=== PATIENT | male | born 1950 | race Caucasian/White ===

== ENCOUNTER → 2018-07-27 | Outpatient (CLI) | payer MEDICARE | LOC: GMAM 15:02 | PROVIDERS: ATTEND Family Medicine | DX: Z12.5 Encounter for screening for malignant neoplasm of prostate (principal) ==

== ENCOUNTER → 2018-08-08 | Outpatient (CLI) | payer MEDICARE ==
--- NOTE | 2018-08-08 12:12 | CT ---
CT arthrogram right shoulder INDICATION: Shoulder pain NOS TECHNIQUE: Helical CT images right shoulder post arthrogram with multiplanar reformats FINDINGS: Diffusely macerated long head bicep likely full-thickness tear. Severe partial tear and thinning of the distal subscapularis tendon. Cystic change in the lesser tuberosity. Full-thickness retracted tears of the supraspinatus and infraspinatus with contrast opacification of the subacromial and subdeltoid bursa. Diffuse labral fraying and volume loss especially superiorly. Type III acromial morphology. Muscle atrophy generally grade 2-3 with fatty marbling and volume loss The lower infraspinatus approaches grade 4. 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 Electronically signed by: Dinesh Gonzalez MD 08/08/2018 12:08 PM CDT
--- NOTE | 2018-08-08 21:07 | RAD ---
EXAM DESCRIPTION: Arthrogram Shoulder Right: RF CLINICAL HISTORY: SHOULDER PAIN right. Initial injury 5 years ago picking up heavy object. Gradual loss of function and increased pain. COMPARISON: Post-arthrogram CT scan of the right shoulder same date. TECHNIQUE: The procedure was explained to the patient with risks and benefits. The patient gave verbal and written consent. Contrast mixture of 10 mL non-ionic 300 contrast and 10 mL of sterile normal saline was prepared. Patient supine on the fluoroscopic table with right shoulder in external rotation. The anterior mid superior right glenohumeral joint was localized by fluoroscopy. The skin was marked, then prepped and draped in a sterile fashion. Intradermal, subcutaneous and intramuscular 1% Xylocaine was given for topical anesthesia. A 1.5 inch, 25-gauge needle was introduced into the anterior superior right glenohumeral joint capsule under fluoroscopic visualization. A test injection of 2 cc of non-ionic 300 was performed under fluoroscopy. Additional 10 CC of contrast mixture was then injected under fluoroscopy. The patient tolerated the procedure well. Active exercise. Patient was transferred to the CT suite for spiral-axial and reconstruction imaging. No immediate complications. One frontal image recorded for the patient's permanent medical record. Total fluoroscopic time was 0.4 minutes. DAP: 1.318 Gy-cm2. IMPRESSION: 1. Successful fluoroscopic guided arthrogram of the right shoulder prior to CT scan. The supraspinatus tendon is torn and completely retracted medially. Please refer to post arthrogram CT scan of the right shoulder. No immediate complications. Electronically signed by: Glenn Uribe MD 08/08/2018 9:04 PM CDT
== END ==
LOC: CT 08-05 08:20
PROVIDERS: ATTEND Family Medicine
DX: S46.011A Strain of muscle(s) and tendon(s) of the rotator cuff of right shoulder, initial encounter (principal); S46.101A Unspecified injury of muscle, fascia and tendon of long head of biceps, right arm, initial encounter; M19.011 Primary osteoarthritis, right shoulder

== ENCOUNTER → 2018-08-25 | Outpatient (CLI) | payer MEDICARE ==
--- NOTE | 2018-08-25 16:12 | RAD ---
EXAM DESCRIPTION: Shoulder,Right 2 or More Views CLINICAL HISTORY: M25.511 COMPARISON: None. TECHNIQUE: 4 views right FINDINGS: Degenerative changes are observed in the a.c. Joint. There is uprising the humeral head consistent with a rotator cuff tear. No fracture or dislocation is seen. 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 Exam also reveals uprising of the humeral head consistent with a rotator cuff tear. Electronically signed by: Bayron Rowell MD 08/25/2018 4:10 PM CDT
== END ==
LOC: RAD 08:44
PROVIDERS: ATTEND Orthopaedic Surgery
DX: M19.011 Primary osteoarthritis, right shoulder (principal)

== ENCOUNTER → 2019-03-16 | Outpatient (CLI) | payer MEDICARE, OTHER ==
--- NOTE | 2019-03-17 10:55 | CT ---
Procedure: CT LUNG SCREENING Exam Date: 03/16/2019. Ordering Provider: Seng Wilson Clinical Indication: PERSONAL HISTORY OF TOBACCO USE . Current cigarette smoker. 55 pack years. This patient meets eligibility criteria for low-dose CT lung cancer screening. Comparison: Chest radiograph August 2018. Technique: Using a multislice scanner, sequential helical axial imaging was obtained in the thorax, 2.5 mm thickness, 2.5 mm separation, from the level of the thoracic inlet through the lung bases without IV contrast. A low dose protocol was utilized for BMI greater than than 30: BMI: 31.0. CTDI: 2.91 mGy. 120. kVp. 75 mA. DLP 124.55 mGy-centimeters. 2D sagittal and coronal reconstructed images, 6.0 mm thickness, were obtained. This exam was performed according to our departmental dose optimization program which includes use of automated exposure control, adjustment of the mA and/or kV according to patient size and/or use of iterative reconstruction technique. Nodule measurements under 10 mm are given as mean value of 3 axes diameters. FINDINGS: Lungs and large airways: Scattered blebs bilaterally with a 2 cm bulla in the left upper lobe. Most blebs are abutting the peripheral and medial pleura. Pleural parenchymal scarring inferior lingula, and peripheral lateral right inferior upper lobe. No abnormal nodules and no masses. No focal infiltrates. Azygous lobe on the medial aspect of the right upper lobe is a normal variant. Pleura and space: Negative. Mediastinum and champ: evaluation limited by low dose technique and lack of IV contrast. Small nodules but no dominant soft tissue mass. Heart and great vessels: Coronary artery calcifications as well as atherosclerotic calcifications of the aortic arch and descending thoracic aorta, and proximal brachiocephalic vessels. Chest wall, lower neck, axillae: Evaluation also limited by same factors as described above. Unremarkable. Upper abdomen: Evaluation limited by low-dose technique. No free fluid or free air in the included peritoneal space. 4.6 x 4.5 cm lateral right renal cyst. 1.7 cm medial cyst. 4.9 mm radiodense stone inferior mid collecting system with no hydronephrosis. Partial visualization of a lateral left renal cyst. Gallbladder not well visualized. Osseous structures: Evaluation limited by low dose MIP technique. Bilateral sternoclavicular arthrosis and posterior sternomanubrial arthrosis. Minimal arthrosis in the left glenohumeral joint. Minimal mid thoracic spondylosis. IMPRESSION: Mild emphysematous changes in the lungs but no abnormal nodules. No mass. No focal infiltrate. Minimal scarring. Azygos lobe medial upper right hemithorax is a normal variant.. [facility] Best Practice Recommendations: please see below for Lung RADS category and FOLLOW-UP.* *Lung RADS category Category 1 - No nodule or definitely benign nodules (probability of malignancy less than 1%). Follow-up: Continue annual screening with Low Dose Chest CT in 12 months. Electronically signed by: Glenn Uribe MD 03/17/2019 10:53 AM [facility]
== END ==
LOC: CT 13:46
PROVIDERS: ATTEND Family Medicine
DX: Z87.891 Personal history of nicotine dependence (principal); J43.9 Emphysema, unspecified